=== PATIENT | male | born 1950 | race Caucasian/White ===

== ENCOUNTER → 2024-08-28 16:14 | Outpatient (REF) | payer OTHER, SELFPAY ==
[2024-08-28 14:47] LABS: % Basophils 0.4 % (0-2); % Eosinophils 4.6 % (0-6); % Immature Granulocytes 0.4 % (0-0.5); % Lymphocytes 12.8 % (20.5-51.1); % Monocytes 6.8 % (1.7-9.3); Absolute Eosinophils 0.3 10^3/uL (0-0.7); Absolute Lymphocytes 0.9 10^3/uL (1.2-3.4); Absolute Monocytes 0.5 10^3/uL (0.1-0.6); Absolute Neutrophils 5.2 10^3/uL (1.4-6.5); Hematocrit 28.5 % (39.0-52.0); Hemoglobin 8.4 g/dL (13.0-18.0); Mean Corp Hgb Conc. 29.5 g/dL (33.0-37.0); Mean Corpuscular Hgb 30.3 pg (27.0-31.0); Mean Corpuscular Volume 102.9 fL (80.0-94.0); Mean Platelet Volume 9.6 fL (7.4-10.4); Platelet Count 121 10^3/uL (130-400); Red Blood Cell Count 2.77 10^6/uL (4.70-6.10); Red Cell Dist. Width 16.3 % (11.5-14.5)
== END ==
LOC: OIDL 16:14
PROVIDERS: ATTENDING PHYSICIAN Nurse Practitioner Primary Care
DX: D50.8 Other iron deficiency anemias (principal)
CPT/HCPCS: 85025

== ENCOUNTER → 2024-09-08 15:17 | Outpatient (REF) | payer OTHER, SELFPAY ==
[2024-09-08 13:12] LABS: % Basophils 0.5 % (0-2); % Eosinophils 4.6 % (0-6); % Immature Granulocytes 0.6 % (0-0.5); % Lymphocytes 11.2 % (20.5-51.1); % Neutrophils 76.1 % (42.2-75.2); Absolute Eosinophils 0.3 10^3/uL (0-0.7); Absolute Lymphocytes 0.7 10^3/uL (1.2-3.4); Absolute Monocytes 0.5 10^3/uL (0.1-0.6); Hematocrit 28.8 % (39.0-52.0); Hemoglobin 8.4 g/dL (13.0-18.0); Mean Corp Hgb Conc. 29.2 g/dL (33.0-37.0); Mean Corpuscular Hgb 30.7 pg (27.0-31.0); Mean Corpuscular Volume 105.1 fL (80.0-94.0); Mean Platelet Volume 9.3 fL (7.4-10.4); Nucleated Red Blood Cells % 0 % (-); Platelet Count 114 10^3/uL (130-400); Red Blood Cell Count 2.74 10^6/uL (4.70-6.10); Red Cell Dist. Width 16.6 % (11.5-14.5); White Blood Cell Count 6.5 10^3/uL (4.8-10.8)
== END ==
LOC: OIDL 15:17
PROVIDERS: ATTENDING PHYSICIAN Nurse Practitioner Primary Care
DX: D50.8 Other iron deficiency anemias (principal); D63.1 Anemia in chronic kidney disease; K22.719 Barrett's esophagus with dysplasia, unspecified; N18.30 Chronic kidney disease, stage 3 unspecified
CPT/HCPCS: 85025

== ENCOUNTER → 2025-05-26 08:16 | Outpatient (REF) | payer OTHER, SELFPAY ==
[2025-05-26 08:44] LABS: Hematocrit 28.2 % (39.0-52.0); Hemoglobin 8.3 g/dL (13.0-18.0); Mean Corp Hgb Conc. 29.4 g/dL (33.0-37.0); Mean Corpuscular Volume 105.2 fL (80.0-94.0); Nucleated Red Blood Cells % 0 % (-); Platelet Count 163 10^3/uL (130-400); Red Cell Dist. Width 15.5 % (11.5-14.5)
[2025-05-26 08:55] LABS: INR 2.83; PT 29.7 Sec (11.4-14.6)
[2025-05-26 09:05] VITALS: BP 129/56; BP_SYST 66
[2025-05-26] MEDS: ATIVAN 0.5 MG PO (09:39)
[2025-05-26 11:15] VITALS: BP 135/63; BP_SYST 63
== END ==
LOC: RADI 08:16
PROVIDERS: ATTENDING PHYSICIAN Internal Medicine Hematology & Oncology; FAMILY PHYSICIAN Physician Assistant; OTHER PHYSICIAN Physician Assistant
DX: D50.8 Other iron deficiency anemias (principal); N18.30 Chronic kidney disease, stage 3 unspecified; D63.1 Anemia in chronic kidney disease
CPT/HCPCS: 36415; 38222; 77012; 85025; 85610; 88305; 88311; 88312; 88313

== ENCOUNTER 2025-07-24 08:11 | Outpatient (RCR) | payer OTHER, SELFPAY ==
[2025-07-24 08:53] VITALS: BP 162/57
[2025-07-24 09:43] VITALS: BP 142/55
[2025-07-24 10:05] VITALS: BP 144/61
[2025-07-24 11:38] VITALS: BP 152/67
[2025-07-24 11:41] VITALS: BP 152/67
== END 2025-08-07 23:59 | disposition home or self-care (01) ==
LOC: OID 08:11
PROVIDERS: ATTENDING PHYSICIAN Internal Medicine Hematology & Oncology
DX: D50.8 Other iron deficiency anemias (principal); N18.30 Chronic kidney disease, stage 3 unspecified; D63.1 Anemia in chronic kidney disease; K22.719 Barrett's esophagus with dysplasia, unspecified
CPT/HCPCS: 36415; 36430; 86850; 86900; 86901; 86920; P9016